=== PATIENT | male | born 1945 | race Caucasian/White ===

== ENCOUNTER 2017-05-26 03:12 | Emergency (ER) | payer MEDICARE, BC ==
[~2017-05-26] VITALS: Ht 172.7 cm; Wt 113.8 kg
[~2017-05-26 03:12] MED LIST: COU5T PO; FENO145T38 PO; MEMA10TA PO; METF500T7 PO; OMEP20TA5 PO; ROSU10TA PO; VITA400C21 PO; WARF5TAB7 PO
[2017-05-26] MEDS ORDERED: diltiazem 5mg/ml 5ml inj. IV ONE ×2 (03:40→05:15)
[2017-05-26 04:23] LABS: BASOPHILS % (AUTO) 0.4 % (0-1); EOSINOPHILS # (AUTO) 0.2 X10'3 (0-0.9); EOSINOPHILS % (AUTO) 2.6 % (0-6); HEMATOCRIT 44.3 % (42.0-52.0); HEMOGLOBIN 14.9 g/dl (14.0-17.9); LYMPHOCYTES # (AUTO) 2.4 X10'3 (1.1-4.8); LYMPHOCYTES % (AUTO) 35.2 % (21-51); MEAN CORPUSCULAR HEMOGLOBIN 29.3 PG (27.0-31.0); MEAN CORPUSCULAR HGB CONC 33.7 % (33.0-36.5); MEAN CORPUSCULAR VOLUME 86.9 FL (78-98); MEAN PLATELET VOLUME 8.3 FL (7.4-10.4); MONOCYTES # (AUTO) 0.8 X10'3 (0-0.9); MONOCYTES % (AUTO) 11.6 % (2-12); NEUTROPHILS # (AUTO) 3.4 X10'3 (1.8-7.7); NEUTROPHILS % (AUTO) 50.2 % (42-75); PLATELET COUNT 231 X10'3 (140-440); RED BLOOD COUNT 5.09 X10'6 (4.70-6.10); RED CELL DISTRIBUTION WIDTH 15.2 % (11.5-14.5); WHITE BLOOD COUNT 6.8 X10'3 (4.5-11.0)
[2017-05-26 04:35] LABS: INR 1.5 INR; PARTIAL THROMBOPLASTIN TIME 28 SECONDS (22-32); PROTHROMBIN TIME 15.1 SECONDS (9.0-12.0)
[2017-05-26 04:38] LABS: ALANINE AMINOTRANSFERASE 43 U/L (12-78); ALBUMIN 3.9 G/DL (3.4-5.0); ALBUMIN/GLOBULIN RATIO 1.3 (1.1-1.5); ALKALINE PHOSPHATASE 102 IU/L (46-116); ANION GAP 10 (8-16); ASPARTATE AMINO TRANSFERASE 29 U/L (10-37); BILIRUBIN,TOTAL 0.6 MG/DL (0.1-1.0); BLOOD UREA NITROGEN 17 MG/DL (7-18); BUN/CREATININE RATIO 18.1 (5.4-32.0); CALCIUM 8.9 MG/DL (8.5-10.1); CHLORIDE 107 MMOL/L (99-107); CREATININE 0.94 MG/DL (0.60-1.10); GLUCOSE 134 MG/DL (70-104); POTASSIUM 3.8 MMOL/L (3.5-5.1); SODIUM 144 MMOL/L (135-145); TOTAL CARBON DIOXIDE 27.2 MMOL/L (24-32); TOTAL PROTEIN 6.9 G/DL (6.4-8.2); eGFR 79 ML/MIN
[2017-05-26] MEDS ORDERED: DILT120C62 PO (05:19)
[2017-05-26 05:56] VITALS: BP 118/72
== END 2017-05-26 05:59 | disposition home or self-care (01) ==
LOC: ER 03:13
DX: I48.91 Unspecified atrial fibrillation (principal); I10 Essential (primary) hypertension; K21.9 Gastro-esophageal reflux disease without esophagitis; E11.9 Type 2 diabetes mellitus without complications; E78.00 Pure hypercholesterolemia, unspecified; I49.9 Cardiac arrhythmia, unspecified; Z88.8 Allergy status to other drugs, medicaments and biological substances; Z91.013 Allergy to seafood; Z79.84 Long term (current) use of oral hypoglycemic drugs; Z79.01 Long term (current) use of anticoagulants
CPT/HCPCS: 36415; 71010; 80053; 84484; 85025; 85610; 85730; 93005; 96374; 96376; 99285; J3490

== ENCOUNTER 2019-05-28 10:33 | Emergency (ER) | payer MEDICARE, BC ==
[~2019-05-28] VITALS: Ht 170.2 cm; Wt 102.3 kg
[~2019-05-28 10:33] MED LIST changes: +DILT120C62 PO; +METF500T20 PO; -METF500T7 PO; -ROSU10TA PO; +ROSU10TA2 PO; +WARF-55 PO; -WARF5TAB7 PO
[2019-05-28] MEDS ORDERED: acetaminophen 325mg tablet PO ONE (11:20)
[2019-05-28] MEDS ORDERED: ketorolac tromethamine 15mg/ml inj. IM ONE (11:20)
[2019-05-28] MEDS ORDERED: ondansetron 4mg rapidly disintigrating tab PO ONE (11:20)
[2019-05-28] MEDS ORDERED: HYDROcodone/acetaminophen 5mg/325mg tablet PO ONE (11:20)
[2019-05-28] MEDS ORDERED: orphenadrine citrate 60mg/2ml inj. IM ONE (11:20)
[2019-05-28] MEDS ORDERED: LIDOcaine 1% w/EPI 1:100,000 30ml vial (MDV) ONE (12:00)
[2019-05-28] MEDS ORDERED: morphine 4 MG/ML inj SYRINge IM ONE (13:15)
[2019-05-28] MEDS ORDERED: morphine 4 MG/ML inj SYRINge IV ONE (13:30)
[2019-05-28 14:13] LABS: CLARITY,URINE CLEAR (Clear); COLOR,URINE STRAW (Yellow); GLUCOSE, URINE >=1000 mg/dl (Neg); KETONES,URINE NEGATIVE (Neg); LEUKOCYTE ESTERASE ,URINE NEGATIVE (Neg); NITRITES, URINE NEGATIVE (Neg); OCCULT BLOOD,URINE TRACE-INTACT (Neg); PH,URINE 5.5 (4.8-8.0); PROTEIN,URINE NEGATIVE (Neg); UROBILINOGEN,URINE 0.2 E.U/dL (0.2-1.0)
[2019-05-28 14:15] LABS: UA COLLECTION TYPE CLN CATCH MIDSTREAM
[2019-05-28 14:25] LABS: ALANINE AMINOTRANSFERASE 53 U/L (12-78); ALBUMIN 4.2 G/DL (3.4-5.0); ALBUMIN/GLOBULIN RATIO 1.3 (1.1-1.5); ALKALINE PHOSPHATASE 85 IU/L (46-116); ANION GAP 11 (8-16); ASPARTATE AMINO TRANSFERASE 30 U/L (10-37); BILIRUBIN,TOTAL 0.8 MG/DL (0.1-1.0); BLOOD UREA NITROGEN 22 MG/DL (7-18); BUN/CREATININE RATIO 20.6 (5.4-32.0); CALCIUM 9.3 MG/DL (8.5-10.1); CHLORIDE 104 MMOL/L (99-107); CREATININE 1.07 MG/DL (0.60-1.10); GLUCOSE 285 MG/DL (70-104); POTASSIUM 4.6 MMOL/L (3.5-5.1); SODIUM 138 MMOL/L (135-145); TOTAL CARBON DIOXIDE 23.5 MMOL/L (24-32); TOTAL PROTEIN 7.5 G/DL (6.4-8.2); eGFR 68 ML/MIN
[2019-05-28 14:31] LABS: EOSINOPHILS # (AUTO) 0.1 X10'3 (0-0.9); MEAN PLATELET VOLUME 8.7 FL (7.4-10.4); RED CELL DISTRIBUTION WIDTH 14.6 % (11.5-14.5)
[2019-05-28 14:32] LABS: BASOPHILS % (AUTO) 0.5 % (0-1); EOSINOPHILS % (AUTO) 1.7 % (0-6); HEMATOCRIT 54.6 % (42.0-52.0); LYMPHOCYTES # (AUTO) 1.4 X10'3 (1.1-4.8); LYMPHOCYTES % (AUTO) 20.1 % (21-51); MEAN CORPUSCULAR HEMOGLOBIN 31.4 PG (27.0-31.0); MEAN CORPUSCULAR HGB CONC 34.7 g/dL (33.0-36.5); MEAN CORPUSCULAR VOLUME 90.5 FL (78-98); MONOCYTES # (AUTO) 0.6 X10'3 (0-0.9); MONOCYTES % (AUTO) 8.4 % (2-12); NEUTROPHILS # (AUTO) 4.8 X10'3 (1.8-7.7); NEUTROPHILS % (AUTO) 69.3 % (42-75); PLATELET COUNT 176 X10'3 (140-440); RED BLOOD COUNT 6.04 X10'6 (4.70-6.10); WHITE BLOOD COUNT 6.9 X10'3 (4.5-11.0)
[2019-05-28 14:38] LABS: BACTERIA,URINE FEW /HPF (Neg); MUCUS STRANDS NONE SEEN /LPF (Neg); RBC,URINE 0-2 /HPF (0-2); SQUAMOUS EPITHELIAL CELL,UR FEW /LPF (FEW); WBC,URINE 0-4 /HPF (0-4)
[2019-05-28] MEDS ORDERED: normal saline 1000ml 1,000 ML IV ONE (14:40)
[2019-05-28] MEDS ORDERED: HYDROmorphone inj. 0.5 MG/0.5 ML DISP.SYRIN IV ONE (14:40)
[2019-05-28 15:04] LABS: CREATINE KINASE 129 U/L (39-308)
[2019-05-28] MEDS ORDERED: triamcinolone acetonide 40mg/ml inj IM ONE (15:30)
[2019-05-28] MEDS ORDERED: HYDROmorphone inj. 0.5 MG/0.5 ML DISP.SYRIN IM ONE (15:30)
[2019-05-28] MEDS ORDERED: CYCL-1 PO (15:33)
[2019-05-28] MEDS ORDERED: HYDR-4353 PO (15:33)
[2019-05-28] MEDS ORDERED: IBUP-1984 PO (15:33)
[2019-05-28] MEDS ORDERED: ACET-812 PO (15:33)
[2019-05-28] MEDS ORDERED: LIDO700A32 TP (15:33)
[2019-05-28] MEDS ORDERED: ONDA8TAB6 PO (15:34)
[2019-05-28 16:34] VITALS: BP 137/87
== END 2019-05-28 16:39 | disposition home or self-care (01) ==
LOC: ER 10:34
DX: M54.42 Lumbago with sciatica, left side (principal); I48.91 Unspecified atrial fibrillation; E78.00 Pure hypercholesterolemia, unspecified; K21.9 Gastro-esophageal reflux disease without esophagitis; I10 Essential (primary) hypertension; E11.9 Type 2 diabetes mellitus without complications; M19.90 Unspecified osteoarthritis, unspecified site; Z98.890 Other specified postprocedural states; Z87.442 Personal history of urinary calculi; Z91.013 Allergy to seafood; Z79.899 Other long term (current) drug therapy; Z79.01 Long term (current) use of anticoagulants
CPT/HCPCS: 36415; 74176; 80053; 81001; 82550; 84145; 85025; 93971; 96372; 96374; 96375; 99284; J1170; J1885; J2270; J2360; J3301; J7030

== ENCOUNTER 2020-03-08 11:54 | Emergency (ER) | payer BC, MEDICARE ==
[~2020-03-08] VITALS: Ht 172.7 cm; Wt 109.5 kg
[~2020-03-08 11:54] MED LIST changes: -COU5T PO; +CYCL-1 PO; +LIDO700A32 TP; +METF-900 PO; -METF500T20 PO; +ONDA8TAB6 PO; +WARF-113 PO
[2020-03-08 13:37] LABS: BASOPHILS % (AUTO) 0.6 % (0-1); EOSINOPHILS # (AUTO) 0.2 X10'3 (0-0.9); EOSINOPHILS % (AUTO) 2.1 % (0-6); LYMPHOCYTES # (AUTO) 1.3 X10'3 (1.1-4.8); LYMPHOCYTES % (AUTO) 18.1 % (21-51); MEAN CORPUSCULAR HGB CONC 33.9 g/dL (33.0-36.5); MEAN CORPUSCULAR VOLUME 91.5 FL (78-98); MEAN PLATELET VOLUME 8.4 FL (7.4-10.4); MONOCYTES # (AUTO) 0.5 X10'3 (0-0.9); MONOCYTES % (AUTO) 6.2 % (2-12); NEUTROPHILS # (AUTO) 5.3 X10'3 (1.8-7.7); PLATELET COUNT 145 X10'3 (140-440); RED BLOOD COUNT 6.23 X10'6 (4.70-6.10); RED CELL DISTRIBUTION WIDTH 14.5 % (11.5-14.5); WHITE BLOOD COUNT 7.3 X10'3 (4.5-11.0)
[2020-03-08 13:44] LABS: HEMOGLOBIN 19.3 g/dl (14.0-17.9)
[2020-03-08 13:54] LABS: ALANINE AMINOTRANSFERASE 40 U/L (12-78); ALBUMIN 4.1 G/DL (3.4-5.0); ALBUMIN/GLOBULIN RATIO 1.2 (1.1-1.5); ALKALINE PHOSPHATASE 66 IU/L (46-116); ANION GAP 9 (8-16); ASPARTATE AMINO TRANSFERASE 28 U/L (10-37); BILIRUBIN,TOTAL 0.9 MG/DL (0.1-1.0); BLOOD UREA NITROGEN 19 MG/DL (7-18); BUN/CREATININE RATIO 22.6 (5.4-32.0); CALCIUM 8.9 MG/DL (8.5-10.1); CHLORIDE 104 MMOL/L (99-107); CREATININE 0.84 MG/DL (0.60-1.10); GLUCOSE 206 MG/DL (70-104); POTASSIUM 4.1 MMOL/L (3.5-5.1); SODIUM 139 MMOL/L (135-145); TOTAL CARBON DIOXIDE 25.7 MMOL/L (24-32); TOTAL PROTEIN 7.5 G/DL (6.4-8.2); eGFR 90 ML/MIN
[2020-03-08] MEDS ORDERED: diazepam 5mg tablet PO ONE (13:55)
[2020-03-08] MEDS ORDERED: meclizine 12.5mg tablet PO ONE (13:55)
--- NOTE | 2020-03-08 14:20 | NUR ---
RELIEVING RN FOR BREAK, PT UP AT BEDSIDE TO USE URINAL, NO ASSISTANCE NEEDED, PT CHRIS PO MED WELL, HAS RIDE HOME WITH FAMILY IF DC'D FROM ER
[2020-03-08] MEDS ORDERED: MECL-159 PO (15:01)
[2020-03-08 15:25] VITALS: BP 142/87
== END 2020-03-08 15:20 | disposition home or self-care (01) ==
LOC: ER 11:54
DX: H81.10 Benign paroxysmal vertigo, unspecified ear (principal); R42 Dizziness and giddiness; I48.91 Unspecified atrial fibrillation; E78.00 Pure hypercholesterolemia, unspecified; I10 Essential (primary) hypertension; K21.9 Gastro-esophageal reflux disease without esophagitis; E11.9 Type 2 diabetes mellitus without complications; Z98.890 Other specified postprocedural states; Z88.8 Allergy status to other drugs, medicaments and biological substances; Z79.01 Long term (current) use of anticoagulants; Z79.899 Other long term (current) drug therapy
CPT/HCPCS: 36415; 71045; 80053; 85025; 93005; 99285; J8597

== ENCOUNTER 2021-04-02 17:38 | Emergency (ER) | payer MEDICARE ==
[~2021-04-02] VITALS: Ht 170.2 cm; Wt 111.4 kg
[~2021-04-02 17:38] MED LIST changes: +MECL-159 PO
[2021-04-02] MEDS ORDERED: aspirin 81mg tab.chew PO ONE (18:20)
[2021-04-02 19:00] LABS: BASOPHILS % (AUTO) 0.7 % (0-1); EOSINOPHILS # (AUTO) 0.2 X10'3 (0-0.9); HEMATOCRIT 44.4 % (42.0-52.0); HEMOGLOBIN 14.8 g/dl (14.0-17.9); LYMPHOCYTES # (AUTO) 1.5 X10'3 (1.1-4.8); LYMPHOCYTES % (AUTO) 26.7 % (21-51); MEAN CORPUSCULAR HEMOGLOBIN 28.8 PG (27.0-31.0); MEAN CORPUSCULAR HGB CONC 33.3 g/dL (33.0-36.5); MEAN CORPUSCULAR VOLUME 86.5 FL (78-98); MEAN PLATELET VOLUME 7.7 FL (7.4-10.4); MONOCYTES # (AUTO) 0.6 X10'3 (0-0.9); MONOCYTES % (AUTO) 10.6 % (2-12); NEUTROPHILS # (AUTO) 3.4 X10'3 (1.8-7.7); PLATELET COUNT 215 X10'3 (140-440); RED BLOOD COUNT 5.13 X10'6 (4.70-6.10); RED CELL DISTRIBUTION WIDTH 14.9 % (11.5-14.5); WHITE BLOOD COUNT 5.7 X10'3 (4.5-11.0)
[2021-04-02 19:13] LABS: ALANINE AMINOTRANSFERASE 57 U/L (12-78); ALBUMIN 3.3 G/DL (3.4-5.0); ALBUMIN/GLOBULIN RATIO 0.9 (1.1-1.5); ALKALINE PHOSPHATASE 59 IU/L (46-116); ANION GAP 12 (8-16); ASPARTATE AMINO TRANSFERASE 27 U/L (10-37); BLOOD UREA NITROGEN 19 MG/DL (7-18); BUN/CREATININE RATIO 18.6 (5.4-32.0); CALCIUM 8.4 MG/DL (8.5-10.1); CHLORIDE 108 MMOL/L (99-107); CREATININE 1.02 MG/DL (0.60-1.10); GLUCOSE 193 MG/DL (70-104); SODIUM 142 MMOL/L (135-145); TOTAL CARBON DIOXIDE 22.1 MMOL/L (24-32); eGFR 71 ML/MIN
[2021-04-02 19:19] LABS: MAGNESIUM 1.9 MG/DL (1.5-2.4)
[2021-04-03] MEDS ORDERED: furosemide 20MG tablet PO ONE (02:40)
[2021-04-03] MEDS ORDERED: SUCR1TAB34 PO ×2 (02:49)
[2021-04-03 03:02] VITALS: BP 134/91
== END 2021-04-03 03:03 | disposition home or self-care (01) ==
LOC: ER 17:39
DX: R07.89 Other chest pain (principal); I48.91 Unspecified atrial fibrillation; R09.89 Other specified symptoms and signs involving the circulatory and respiratory systems; R06.02 Shortness of breath; R53.83 Other fatigue; E78.00 Pure hypercholesterolemia, unspecified; I10 Essential (primary) hypertension; K21.9 Gastro-esophageal reflux disease without esophagitis; E11.9 Type 2 diabetes mellitus without complications; Z87.442 Personal history of urinary calculi; Z98.890 Other specified postprocedural states; Z88.8 Allergy status to other drugs, medicaments and biological substances; Z91.013 Allergy to seafood; Z79.899 Other long term (current) drug therapy
CPT/HCPCS: 36415; 71045; 80053; 83735; 83880; 84484; 85025; 93005; 99285

== ENCOUNTER 2021-04-12 09:51 | Day surgery (SDC) | payer MEDICARE ==
[~2021-04-12] VITALS: Ht 170.2 cm; Wt 109.2 kg
[2021-04-12] VITALS (13 sets, daily range): BP systolic 111–132; BP diastolic 66–96
[~2021-04-12 09:51] MED LIST changes: +SUCR1TAB34 PO
[2021-04-12] MEDS ORDERED: normal saline 1000ml 1,000 ML IV SCH (10:20)
[2021-04-12] MEDS ORDERED: MIDAZolam 1mg/ml 10ml vial IV ONE (10:20)
[2021-04-12] MEDS ORDERED: fentaNYL/PF 50MCG/1 ML 2ML syringe IV ONE (10:20)
[2021-04-12] MEDS ORDERED: EMPA1TAB19 PO (10:43)
[2021-04-12] MEDS ORDERED: FURO20TA4 PO (10:43)
[2021-04-12] MEDS ORDERED: SUCR1TAB PO (10:43)
[2021-04-12] MEDS ORDERED: NITR0.4T48 SL (10:43)
[2021-04-12] MEDS ORDERED: SITA100T15 PO (10:45)
[2021-04-12] MEDS ORDERED: RYT225T PO (10:45)
[2021-04-12 10:57] LABS: BASOPHILS # (AUTO) 0.1 X10'3 (0-0.2); BASOPHILS % (AUTO) 0.9 % (0-1); EOSINOPHILS # (AUTO) 0.4 X10'3 (0-0.9); EOSINOPHILS % (AUTO) 5.1 % (0-6); HEMATOCRIT 47.5 % (42.0-52.0); HEMOGLOBIN 15.8 g/dl (14.0-17.9); LYMPHOCYTES # (AUTO) 2.3 X10'3 (1.1-4.8); LYMPHOCYTES % (AUTO) 29.9 % (21-51); MEAN CORPUSCULAR HEMOGLOBIN 28.3 PG (27.0-31.0); MEAN CORPUSCULAR HGB CONC 33.4 g/dL (33.0-36.5); MONOCYTES # (AUTO) 0.8 X10'3 (0-0.9); MONOCYTES % (AUTO) 10.7 % (2-12); NEUTROPHILS # (AUTO) 4.2 X10'3 (1.8-7.7); NEUTROPHILS % (AUTO) 53.4 % (42-75); PLATELET COUNT 257 X10'3 (140-440); RED BLOOD COUNT 5.59 X10'6 (4.70-6.10); RED CELL DISTRIBUTION WIDTH 15.3 % (11.5-14.5); WHITE BLOOD COUNT 7.8 X10'3 (4.5-11.0)
[2021-04-12 11:10] LABS: ALBUMIN 3.4 G/DL (3.4-5.0); ANION GAP 13 (8-16); BLOOD UREA NITROGEN 24 MG/DL (7-18); BUN/CREATININE RATIO 24.7 (5.4-32.0); CALCIUM 8.3 MG/DL (8.5-10.1); CHLORIDE 104 MMOL/L (99-107); CREATININE 0.97 MG/DL (0.60-1.10); GLUCOSE 186 MG/DL (70-104); SODIUM 140 MMOL/L (135-145); TOTAL CARBON DIOXIDE 22.8 MMOL/L (24-32); eGFR 76 ML/MIN
== END 2021-04-12 14:15 | disposition home or self-care (01) ==
LOC: SSTAY O 09:51
PROVIDERS: ATTEND Internal Medicine Interventional Cardiology
DX: I48.0 Paroxysmal atrial fibrillation (principal); G47.33 Obstructive sleep apnea (adult) (pediatric); E11.9 Type 2 diabetes mellitus without complications; I25.10 Atherosclerotic heart disease of native coronary artery without angina pectoris; K21.9 Gastro-esophageal reflux disease without esophagitis; I44.7 Left bundle-branch block, unspecified; Z79.899 Other long term (current) drug therapy; Z79.01 Long term (current) use of anticoagulants; Z79.84 Long term (current) use of oral hypoglycemic drugs; Z87.891 Personal history of nicotine dependence; Z88.8 Allergy status to other drugs, medicaments and biological substances
CPT/HCPCS: 36415; 80048; 82948; 85025; 85610; 92960; 93005; J2250; J3010; J7030

== ENCOUNTER 2021-10-11 11:52 | Day surgery (SDC) | payer MEDICARE ==
[2021-10-11] VITALS (10 sets, daily range): BP systolic 118–140; BP diastolic 50–92
[~2021-10-11] VITALS: Ht 172.7 cm; Wt 113.2 kg
[~2021-10-11 11:52] MED LIST changes: -CYCL-1 PO; -DILT120C62 PO; +EMPA1TAB19 PO; +FURO20TA4 PO; -LIDO700A32 TP; -MECL-159 PO; -MEMA10TA PO; +NITR0.4T48 SL; +OMEP20TA43 PO; -OMEP20TA5 PO; -ONDA8TAB6 PO; +RYT225T PO; +SITA100T15 PO; +SUCR1TAB PO; -SUCR1TAB34 PO; -VITA400C21 PO; -WARF-113 PO; -WARF-55 PO
[2021-10-11] MEDS ORDERED: diphenhydrAMINE 25mg capsule PO PRN (12:20)
[2021-10-11] MEDS ORDERED: LORazepam 0.5 MG tablet PO PRN (12:20)
[2021-10-11] MEDS ORDERED: normal saline 1,000 ML IV SCH (12:20)
[2021-10-11] MEDS ORDERED: methylPREDNISolone sod succ 125mg/2ml vial IV ONE (12:30)
[2021-10-11 12:58] LABS: BASOPHILS % (AUTO) 0.3 % (0-1); EOSINOPHILS % (AUTO) 0 % (0-6); LYMPHOCYTES % (AUTO) 9.8 % (21-51); MEAN CORPUSCULAR HEMOGLOBIN 25.3 PG (27.0-31.0); MEAN CORPUSCULAR HGB CONC 32.4 g/dL (33.0-36.5); MEAN CORPUSCULAR VOLUME 77.9 FL (78-98); MEAN PLATELET VOLUME 8.4 FL (7.4-10.4); MONOCYTES # (AUTO) 0.4 X10'3 (0-0.9); MONOCYTES % (AUTO) 3.8 % (2-12); NEUTROPHILS # (AUTO) 9.1 X10'3 (1.8-7.7); NEUTROPHILS % (AUTO) 86.1 % (42-75); PLATELET COUNT 259 X10'3 (140-440); RED BLOOD COUNT 5.13 X10'6 (4.70-6.10); RED CELL DISTRIBUTION WIDTH 18.2 % (11.5-14.5); WHITE BLOOD COUNT 10.6 X10'3 (4.5-11.0)
[2021-10-11 13:18] LABS: APTT 21 SECONDS (22-32)
[2021-10-11] MEDS ORDERED: WARF-55 PO (13:20)
[2021-10-11] MEDS ORDERED: METO25TA6 PO (13:20)
[2021-10-11] MEDS ORDERED: ASPI-611 PO (13:20)
[2021-10-11] MEDS ORDERED: METF-438 PO (13:20)
[2021-10-11 13:25] LABS: ALBUMIN 3.5 G/DL (3.4-5.0); ANION GAP 11 (8-16); BLOOD UREA NITROGEN 32 MG/DL (7-18); BUN/CREATININE RATIO 21.1 (5.4-32.0); CALCIUM 8.2 MG/DL (8.5-10.1); CHLORIDE 102 MMOL/L (99-107); CREATININE 1.52 MG/DL (0.60-1.10); POTASSIUM 4.3 MMOL/L (3.5-5.1); SODIUM 135 MMOL/L (135-145); TOTAL CARBON DIOXIDE 22.5 MMOL/L (24-32); eGFR 45 ML/MIN
[2021-10-11 13:48] LABS: GLUCOSE 472 MG/DL (70-104)
[2021-10-11] MEDS ORDERED: insulin Lispro (HumaLOG) vial - multi-dose SQ SCH (13:55)
[2021-10-11] MEDS ORDERED: DEXTROSE 15 GM of carb/4 tabs (each vial/BOTTLE has 4 tablets) PO PRN ×2 (13:55)
[2021-10-11] MEDS ORDERED: glucagon, human recombinant 1mg kit SUBCUT PRN (13:55)
[2021-10-11] MEDS ORDERED: dextrose 50%-water 50ml dispensing syringe IV PRN ×2 (13:55)
[2021-10-11] MEDS ORDERED: MESSAGE TO PHARMACY PO ONE (13:55)
[2021-10-11] MEDS ORDERED: nitroGLYCERIN 0.4mg SUBLingual tab SL ONE (13:59)
--- NOTE | 2021-10-11 14:00 | NUR ---
pt c/o CP of 5 on scale of 1-10, pt given Nitro and EKG ordered
--- NOTE | 2021-10-11 14:05 | NUR ---
EKG completed, CP is at 2, pt declined another Nitro.
[2021-10-11] MEDS ORDERED: verapamil 2.5 mg/ml inj IV ONE (14:52)
[2021-10-11] MEDS ORDERED: nitroGLYCERIN-Tridil 50MG/D5W 250 ML IV ONE (14:52)
[2021-10-11] MEDS ORDERED: fentaNYL/PF 50MCG/1 ML 2ML syringe ONE (14:53)
[2021-10-11] MEDS ORDERED: midazolam 1 mg/ML 2ml injection ONE (14:53)
[2021-10-11] MEDS ORDERED: heparin 1,000unit/ml 10ml vial 10 ML ONE (14:54)
[2021-10-11] MEDS ORDERED: iohexol 350MG/ML 100ml bottle IV ONE (14:54)
[2021-10-11] MEDS ORDERED: LIDOCAINE 1% w/preservative (10 MG/ML) inj. 10mL VIAL ONE (14:57)
[2021-10-11] MEDS ORDERED: iohexol 350 MG/ML 50ML vial IV ONE (15:17)
[2021-10-11] MEDS ORDERED: furosemide 40mg/4ml inj ONE (15:30)
[2021-10-11] MEDS ORDERED: proCHLORperazine 10 MG/2 ml inj IV PRN (16:15)
[2021-10-11] MEDS ORDERED: HYDROcodone/acetaminophen 10/325mg tab PO PRN (16:15)
[2021-10-11] MEDS ORDERED: HYDROcodone/acetaminophen 5mg/325mg tablet PO PRN (16:15)
[2021-10-11] MEDS ORDERED: OXAZEpam 15mg capsule PO PRN (16:15)
[2021-10-11] MEDS ORDERED: normal saline 1000ml 1,000 ML IV SCH (16:15)
[2021-10-11] MEDS ORDERED: ondansetron/PF 4mg/2ml inj IV PRN (16:15)
[2021-10-11] MEDS ORDERED: insulin glargine (Lantus) pen - multi-dose SQ SCH (21:00)
== END 2021-10-11 19:05 | disposition home or self-care (01) ==
LOC: SSTAY O 11:52
PROVIDERS: ATTEND Internal Medicine Interventional Cardiology
DX: I25.110 Atherosclerotic heart disease of native coronary artery with unstable angina pectoris (principal); G47.33 Obstructive sleep apnea (adult) (pediatric); E11.9 Type 2 diabetes mellitus without complications; I48.91 Unspecified atrial fibrillation; I44.7 Left bundle-branch block, unspecified; K21.9 Gastro-esophageal reflux disease without esophagitis; I48.0 Paroxysmal atrial fibrillation; Z79.82 Long term (current) use of aspirin; Z79.899 Other long term (current) drug therapy; Z79.84 Long term (current) use of oral hypoglycemic drugs; Z87.891 Personal history of nicotine dependence; Z88.8 Allergy status to other drugs, medicaments and biological substances
CPT/HCPCS: 36415; 80048; 82948; 85025; 85610; 85730; 93005; 93458; 93571; 99152; C1751; C1769; C1894; J1644; J1815; J1940; J2250; J2930; J3490; J7030; Q0163; Q9967; 99153; A4620; A5120; J3010

== ENCOUNTER 2021-11-10 03:38 | Emergency (ER) | payer MEDICARE ==
[~2021-11-10] VITALS: Ht 172.7 cm; Wt 105.0 kg
[~2021-11-10 03:38] MED LIST changes: +ASPI-611 PO; -EMPA1TAB19 PO; -FURO20TA4 PO; +METF-438 PO; -METF-900 PO; +METO25TA6 PO; -SITA100T15 PO; -SUCR1TAB PO; +WARF-55 PO
[2021-11-10] MEDS ORDERED: acetaminophen 325mg tablet PO ONE (03:45)
[2021-11-10] MEDS ORDERED: normal saline 1000ml 1,000 ML IV ONE (03:55)
[2021-11-10 04:22] LABS: BASOPHILS # (AUTO) 0.1 X10'3 (0-0.2); BASOPHILS % (AUTO) 0.7 % (0-1); EOSINOPHILS # (AUTO) 0.2 X10'3 (0-0.9); EOSINOPHILS % (AUTO) 3.1 % (0-6); HEMATOCRIT 39.5 % (42.0-52.0); HEMOGLOBIN 12.9 g/dl (14.0-17.9); LYMPHOCYTES # (AUTO) 2.3 X10'3 (1.1-4.8); LYMPHOCYTES % (AUTO) 29.4 % (21-51); MEAN CORPUSCULAR HEMOGLOBIN 24.8 PG (27.0-31.0); MEAN CORPUSCULAR HGB CONC 32.6 g/dL (33.0-36.5); MEAN CORPUSCULAR VOLUME 76.1 FL (78-98); MONOCYTES # (AUTO) 0.7 X10'3 (0-0.9); NEUTROPHILS # (AUTO) 4.4 X10'3 (1.8-7.7); NEUTROPHILS % (AUTO) 57.8 % (42-75); PLATELET COUNT 225 X10'3 (140-440); RED BLOOD COUNT 5.19 X10'6 (4.70-6.10); RED CELL DISTRIBUTION WIDTH 17.9 % (11.5-14.5); WHITE BLOOD COUNT 7.7 X10'3 (4.5-11.0)
[2021-11-10 04:36] LABS: ALANINE AMINOTRANSFERASE 26 U/L (12-78); ALBUMIN 3.4 G/DL (3.4-5.0); ALBUMIN/GLOBULIN RATIO 1.1 (1.1-1.5); ALKALINE PHOSPHATASE 62 IU/L (46-116); ANION GAP 12 (8-16); ASPARTATE AMINO TRANSFERASE 18 U/L (10-37); BILIRUBIN,TOTAL 0.5 MG/DL (0.1-1.0); BLOOD UREA NITROGEN 27 MG/DL (7-18); BUN/CREATININE RATIO 18.4 (5.4-32.0); CALCIUM 8.7 MG/DL (8.5-10.1); CHLORIDE 107 MMOL/L (99-107); CREATININE 1.47 MG/DL (0.60-1.10); GLUCOSE 188 MG/DL (70-104); POTASSIUM 3.8 MMOL/L (3.5-5.1); SODIUM 142 MMOL/L (135-145); TOTAL CARBON DIOXIDE 23.1 MMOL/L (24-32); TOTAL PROTEIN 6.4 G/DL (6.4-8.2); eGFR 47 ML/MIN
[2021-11-10] MEDS ORDERED: TRAM50TA2 PO (05:58)
[2021-11-10 06:51] LABS: CLARITY,URINE CLEAR (Clear); COLOR,URINE YELLOW (Yellow); GLUCOSE, URINE NEGATIVE (Neg); KETONES,URINE NEGATIVE (Neg); LEUKOCYTE ESTERASE ,URINE NEGATIVE (Neg); NITRITES, URINE NEGATIVE (Neg); OCCULT BLOOD,URINE NEGATIVE (Neg); PH,URINE 5.5 (4.8-8.0); PROTEIN,URINE NEGATIVE (Neg); UROBILINOGEN,URINE 0.2 E.U/dL (0.2-1.0)
[2021-11-10 06:53] LABS: UA COLLECTION TYPE URINAL
[2021-11-10] MEDS ORDERED: ACET-1131 PO (08:43)
[2021-11-10] MEDS ORDERED: FLEC50TA28 PO (08:46)
[2021-11-10 08:54] VITALS: BP 103/68
[2021-11-10] MEDS ORDERED: acetaminophen 1,000mg/100ml IV 100 ML IV ONE (14:00)
== END 2021-11-10 10:07 | disposition home or self-care (01) ==
LOC: ER 03:39
DX: S22.32XA Fracture of one rib, left side, initial encounter for closed fracture (principal); M54.50 Low back pain, unspecified; R00.0 Tachycardia, unspecified; I48.91 Unspecified atrial fibrillation; E78.00 Pure hypercholesterolemia, unspecified; I10 Essential (primary) hypertension; K21.9 Gastro-esophageal reflux disease without esophagitis; E11.9 Type 2 diabetes mellitus without complications; Z87.442 Personal history of urinary calculi; Z98.890 Other specified postprocedural states; Z88.8 Allergy status to other drugs, medicaments and biological substances; Z91.013 Allergy to seafood; Z79.82 Long term (current) use of aspirin; Z79.899 Other long term (current) drug therapy; W19.XXXA Unspecified fall, initial encounter; Y93.89 Activity, other specified; Y92.89 Other specified places as the place of occurrence of the external cause; Y99.8 Other external cause status
CPT/HCPCS: 36415; 71045; 74176; 80053; 81003; 85025; 85610; 96361; 96374; 99285; J0131; J7030

== ENCOUNTER 2022-12-15 15:32 | Emergency (ER) | payer MEDICARE ==
[~2022-12-15] VITALS: Ht 172.7 cm; Wt 101.0 kg
[~2022-12-15 15:32] MED LIST changes: +APIX5TAB3 PO; -ASPI-611 PO; +ATOR20TA66 PO; +CEFD300C3 PO; +CHOL100046 PO; +EMPA10TA PO; +EXEN2AUT SQ; +FENO145T25 PO; -FENO145T38 PO; +FURO20TA4 PO; +GLIM4TAB7 PO; +LOSA25TA41 PO; -METO25TA6 PO; -OMEP20TA43 PO; +POTA-207 PO; -ROSU10TA2 PO; -RYT225T PO; +SOTA80TA73 PO; -WARF-55 PO
[2022-12-15 15:43] VITALS: BP 118/62
[2022-12-15 18:31] LABS: BASOPHILS % (AUTO) 0.5 % (0-1); EOSINOPHILS # (AUTO) 0.2 X10'3 (0-0.9); EOSINOPHILS % (AUTO) 2.3 % (0-6); HEMATOCRIT 45.9 % (42.0-52.0); HEMOGLOBIN 14.9 g/dl (14.0-17.9); LYMPHOCYTES # (AUTO) 1.9 X10'3 (1.1-4.8); LYMPHOCYTES % (AUTO) 29.3 % (21-51); MEAN CORPUSCULAR HEMOGLOBIN 26.4 PG (27.0-31.0); MEAN CORPUSCULAR HGB CONC 32.4 g/dL (33.0-36.5); MEAN CORPUSCULAR VOLUME 81.4 FL (78-98); MEAN PLATELET VOLUME 8.1 FL (7.4-10.4); MONOCYTES # (AUTO) 0.7 X10'3 (0-0.9); MONOCYTES % (AUTO) 10.2 % (2-12); NEUTROPHILS # (AUTO) 3.8 X10'3 (1.8-7.7); NEUTROPHILS % (AUTO) 57.7 % (42-75); PLATELET COUNT 202 X10'3 (140-440); RED BLOOD COUNT 5.64 X10'6 (4.70-6.10); RED CELL DISTRIBUTION WIDTH 17.5 % (11.5-14.5); WHITE BLOOD COUNT 6.6 X10'3 (4.5-11.0)
[2022-12-15 18:41] LABS: ALANINE AMINOTRANSFERASE 36 U/L (12-78); ALBUMIN 3.9 G/DL (3.4-5.0); ALBUMIN/GLOBULIN RATIO 1.2 (1.1-1.5); ALKALINE PHOSPHATASE 83 IU/L (46-116); ANION GAP 12 (8-16); ASPARTATE AMINO TRANSFERASE 25 U/L (10-37); BILIRUBIN,TOTAL 0.4 MG/DL (0.1-1.0); BLOOD UREA NITROGEN 24 MG/DL (7-18); BUN/CREATININE RATIO 19.5 (10.0-20.0); CALCIUM 8.9 MG/DL (8.5-10.1); CHLORIDE 100 MMOL/L (99-107); CREATININE 1.23 MG/DL (0.60-1.10); GLUCOSE 352 MG/DL (70-104); POTASSIUM 4.6 MMOL/L (3.5-5.1); SODIUM 141 MMOL/L (135-145); TOTAL CARBON DIOXIDE 29.5 MMOL/L (24-32); TOTAL PROTEIN 7.2 G/DL (6.4-8.2); eGFR 57 ML/MIN
== END 2022-12-15 22:12 | disposition left against medical advice (07) ==
LOC: ER 15:32
DX: R73.9 Hyperglycemia, unspecified (principal); Z53.21 Procedure and treatment not carried out due to patient leaving prior to being seen by health care provider
CPT/HCPCS: 36415; 80053; 82948; 85025; 99281